=== PATIENT | male | born 1960 | race Caucasian/White ===

== ENCOUNTER → 2019-02-19 | Outpatient (CLI) | payer BC ==
--- NOTE | 2019-02-19 15:22 | RAD ---
MR#: [id number] Date of Study: 02/19/2019 Ordering Physician: SARAH RIDER, Referring Physician: SARAH RIDER, Tech: Berta Erazo RDMS, RVT, RTR APPROVED REPORT Bilateral Lower Extremity Venous Study for DVT Patient Location: OUT-PATIENT Indications Lower Extremity Edema: Bilateral Findings Technically difficult images but within these limitations no obvious thrombus identified in the lower extremity deep veins. On the right the common femoral, superficial femoral and popliteal veins appear to be compressible. T he below-knee veins were not well visualized but grossly have spontaneous flow. Similarly on the left the common femoral, superficial femoral and popliteal veins are compressible. The below-knee vessels again are noted to have spontaneous flow but not well visualized. Incidental note is made of bilateral groin lymph nodes measuring approximately 3.3 x 1.3 x 1 7-year-o ld the right side and 2.3 x 1.4 x 0.97 cm on the left side. Critical Notification Critical Value: No <Conclusion> 1. Technically difficult study without any obvious evidence of thrombus in the bilateral lower extrem ity deep veins 2. Incidental bilateral inguinal lymphadenopathy as noted above Signed by : Ariel Arellano, Electronically Approved : 02/19/2019 15:21:09
--- NOTE | 2019-02-19 16:28 | RAD ---
MR#: [id number] Date of Study: 02/19/2019 Ordering Physician: SARAH RIDER, Referring Physician: SARAH RIDER, Tech: Berta Erazo RDMS, LOBITOT, RTR APPROVED REPORT Patient Location : OUT-PATIENT Indications Lower Extremity Edema : Bilateral Grayscale images of the saphenofemoral junctions do not reveal any obvious evidence of thrombus. The left great saphenous vein measures 6 mm and has a maximum reflux time of 1.5 seconds. The right great saphenous vein measures 6.3 mm and has a maximum reflux time of 1.3 seconds. Bilateral lesser saphen ous veins do not show any evidence of reflux. Deep System Deep Venous Reflux present : Bilateral Greater Saphenous Veins (GSV) Significant venous relux noted in the RIGHT GSV at the following levels : Superficial Femoral Junctio n, Proximal Thigh, Mid Thigh, Distal Thigh, Proximal Calf, Mid Calf, Distal Calf Significant venous relux noted in the LEFT GSV at the following levels : Superficial Femoral Junction , Proximal Thigh, Mid Thigh, Distal Thigh, Proximal Calf, Mid Calf, Distal Calf Critical Notification Critical Value: No <Conclusion> 1. Positive for reflux in the bilateral greater saphenous veins. Signed by : Ariel Arellano, Electronically Approved : 02/19/2019 16:27:50
== END | disposition home or self-care (01) ==
LOC: KCIC US 13:01
PROVIDERS: ATTEND Internal Medicine Cardiovascular Disease
DX: I87.2 Venous insufficiency (chronic) (peripheral) (principal); R59.0 Localized enlarged lymph nodes
CPT/HCPCS: 93970

== ENCOUNTER → 2019-02-25 | Outpatient (CLI) | payer BC ==
--- NOTE | 2019-02-25 14:06 | CARD ---
MR#: [id number] Date of Study: 02/25/2019 Ordering Physician: SARAH GRAY, Referring Physician: SARAH GRAY Tech: Ann Galdamez RDCS APPROVED REPORT EXAM: Two-dimensional and M-mode echocardiogram with Doppler and color Doppler. Other Information Quality : AverageHR: 74bpm Rhythm : NSR INDICATION EDEMA 2D DIMENSIONS RVDd3.5 (2.9-3.5cm)Left Atrium(2D)3.5 (1.6-4.0cm) IVSd1.0 (0.7-1.1cm)Aortic Root(2D)3.3 (2.0-3.7cm) LVDd5.3 (3.9-5.9cm)LVOT Diameter2.6 (1.8-2.4cm) PWd0.9 (0.7-1.1cm)LVDs3.7 (2.5-4.0cm) FS (%) 29.9 %SV76.1 ml LVEF(%)56.6 (>50%) M-Mode DIMENSIONS Left Atrium(MM)4.02 (2.5-4.0cm)Aortic Root3.50 (2.2-3.7cm) Aortic Valve AoV Peak William.142.5cm/sAoV VTI29.7cm AO Peak GR.8.1mmHgLVOT Peak William.98.9cm/s AO Mean GR.4mmHgAVA (VMAX)3.59cm2 KAYLEN (VTI)3.60cm2 Mitral Valve MV E Zjungmaf095.3cm/sMV DECEL [id number] MV A Owegldzv97.0cm/sE/A Ratio1.2 Pulmonary Valve PV Peak Iwpymtdb010.8cm/s LEFT VENTRICLE The left ventricle is normal size. There is normal left ventricular wall thickness. The left ventricu lar systolic function is normal. The Ejection Fraction is 55-60%. There is normal LV segmental wall m otion. Transmitral Doppler flow pattern is Grade II-pseudonormal filling dynamics. RIGHT VENTRICLE The right ventricle is normal size. There is normal right ventricular wall thickness. The right ventr icular systolic function is normal. ATRIA The left atrium size is normal. The right atrium size is normal. The interatrial septum is intact wit h no evidence for an atrial septal defect or patent foramen ovale as noted on 2-D or Doppler imaging. AORTIC VALVE The aortic valve is normal in structure and function. The aortic valve is trileaflet. Doppler and Col or Flow revealed no significant aortic regurgitation. There is no significant aortic valvular stenosi s. MITRAL VALVE The mitral valve is normal in structure and function. There is no evidence of mitral valve prolapse. There is no mitral valve stenosis. Doppler and Color-flow revealed trace mitral regurgitation. TRICUSPID VALVE The tricuspid valve is normal in structure and function. Doppler and Color Flow revealed no tricuspid valve regurgitation noted. There is no tricuspid valve prolapse or vegetation. There is no tricuspid valve stenosis. PULMONIC VALVE The pulmonic valve is not well visualized. GREAT VESSELS The aortic root is normal in size. The ascending aorta is normal in size. The IVC is normal in size a nd collapses >50% with inspiration. PERICARDIAL EFFUSION There is no evidence of significant pericardial effusion. Critical Notification Critical Value: No <Conclusion> The left ventricular systolic function is normal. The Ejection Fraction is 55-60%. There is normal LV segmental wall motion. Doppler and Color-flow revealed trace mitral regurgitation. There is no evidence of significant pericardial effusion. Signed by : Sarah Gray, Electronically Approved : 02/25/2019 14:05:33
== END | disposition home or self-care (01) ==
LOC: ECHO 09:53
PROVIDERS: ATTEND Internal Medicine Cardiovascular Disease
DX: I10 Essential (primary) hypertension (principal); I87.2 Venous insufficiency (chronic) (peripheral); R60.9 Edema, unspecified
CPT/HCPCS: 93306